=== PATIENT | male | born 1965 | race Caucasian/White ===

== ENCOUNTER 2016-11-14 20:30 | Emergency (ER) | payer MEDICAID ==
--- NOTE | 2016-11-14 20:59 | ED Physician Chart ---
Chief Complaint/HPI - Patient Information Date Seen:: 11/14/16 Time Seen:: 20:45 Chief Complaint:: palpitations and tremors History of Present Illness:: The last 9 days patient has been drinking a fifth of suellen or whiskey per day. His girlfriend came to his apartment today and poured out the remaining one third of the bottle of suellen. Patient complains of palpitations and tremors. He thinks he is going into alcohol withdrawal. Prior to the current 9 day alcohol drinking binge patient had 2 years of sobriety. He's had up to a nine- year period of sobriety Allergies:: Allergies Allergy/AdvReac Type Severity Reaction Status Date / Time No Known Allergies Allergy Verified 11/14/16 20:47 Vitals:: Vital Signs - 8 hr 11/14/16 20:30 Temp 100.0 F HR 120 RR 20 BP 142/88 O2 Sat % 94 Historian:: Patient Review:: Nurse's Note Reviewed Review of Systems - Review of Systems General/Constitutional: No fever, No chills Skin: No skin lesions Head: No headache Eyes: No loss of vision ENT: No earache Neck: No neck pain, No swelling Cardio Vascular: No chest pain, Palpitations Pulmonary: No SOB, No cough GI: No pain, No melena G/U: No dysuria, No frequency Musculoskeletal: No bone or joint pain Endocrine: No polyuria, No polydipsia Psychiatric: No prior psych history Hematopoietic: No bruising, No lymphadenopathy Allergic/Immuno: No urticaria Neurological: No syncope Past Medical History - Past Medical History Past Medical History: Other (alcoholism) Family History: HTN Social History: Smoker, Alcohol Surgical History: Hernia Psychiatricy History: None Family Medical History - Family Member Mother History Unknown: Yes Physical Exam - Physical Examination General/Constitutional: Well-developed, well-nourished, Alert Other Gen/Cons comments:: Mildly tremulous Head: Atraumatic Skin: Nl inspection ENMT: External ears, nose nl, Nasal exam nl Other ENMT comments:: Gum retraction noted Neck: No nuchal rigidity Respiratory: Nl effort/Exclusion Other Respiratory comments:: Minimum right-sided wheezing otherwise chest is clear Cardio Vascular: RRR GI: No tenderness/rebounding/guarding, No organomegaly : No CVA tenderness Extremities: No tenderness or effusion Neuro/Psych: Alert/oriented, No focal deficits Misc: Normal back Labs/Radiology/EKG Results - Lab Results Comments:: Laboratory Results - last 24 hr 11/14/16 11/14/16 11/14/16 21:15 21:15 21:15 WBC 10.5 RBC 5.74 H Hgb 16.7 Hct 51.5 H MCV 89.7 MCH 29.0 MCHC Differential 32.4 RDW 12.7 Plt Count 190 MPV 6.9 Neutrophils % 73.4 Lymphocytes % 17.8 L Monocytes % 8.4 Eosinophils % 0.2 Basophils % 0.2 Sodium 137 Potassium 4.1 Chloride 95 L Carbon Dioxide 26.3 Anion Gap 19.8 H BUN 19 Creatinine 1.0 Est GFR ( Amer) > 60.0 Est GFR (Non-Af Amer) > 60.0 BUN/Creatinine Ratio 19.0 Glucose 128 H Calcium 9.0 Magnesium 2.2 Ethyl Alcohol 285 H Assessment - Assessment General Assessment: at 2250 patient improved. Girlfriend who has had 18 years of sobriety and looks healthy and competent and works states she will control the Librium ED Septic Shock - . Is Septic Shock (SBP<90, OR Lactate>4 mmol\L) present?: No - <6hrs of presentation: Vital Signs: Vital Signs - 8 hr 11/14/16 20:30 Temp 100.0 F HR 120 RR 20 BP 142/88 O2 Sat % 94 Reassessment (Disposition) - Reassessment Reassessment Condition:: Improved - Diagnosis Diagnosis:: alcohol intoxication; alcohol withdrawal - Aftercare/Follow up Instructions Aftercare/Follow-Up Instructions:: Refer to Discharge Instructions Medication Prescribed:: Librium 50 mg #16 Sig 1 BID-TID PRN - Patient Disposition Discharge/Transfer:: Home Condition at Disposition:: Stable, Improved
[2016-11-14] MEDS ORDERED: Sodium Chloride 0.9% 2,000 ML IV ONE (21:13)
[2016-11-14 21:33] LABS: % BASOPHILS 0.2 % (0.0-2.0); % EOSINOPHILS 0.2 % (0.0-5.0); % LYMPHOCYTES 17.8 % (20.0-50.0); % MONOCYTES 8.4 % (2.0-10.0); % NEUTROPHILS 73.4 % (40.0-80.0); HEMATOCRIT 51.5 % (39.0-49.0); HEMOGLOBIN 16.7 gm/dL (13.2-17.3); MEAN CELL VOLUME 89.7 fl (80-99); MEAN CORPUSCULAR HGB CONC 32.4 pg (28.0-36.0); MEAN PLATELET VOLUME 6.9 fl; NEUTROPHILE ABSOLUTE 7.7 Th/cmm (1.8-8.0); PLATELET COUNT 190 Th/cmm (150-400); RED BLOOD COUNT 5.74 Mil/cmm (4.30-5.70); RED CELL DISTRIBUTION WIDTH 12.7 % (11.5-20.0); WHITE BLOOD COUNT 10.5 Th/cmm (4.8-10.8)
[2016-11-14 21:51] LABS: ANION GAP 19.8 (7.0-16.0); BUN - UREA NITROGEN 19 mg/dL (7-25); CARBON DIOXIDE 26.3 mEq/L (21.0-31.0); CHLORIDE 95 mEq/L (98-107); GLUCOSE 128 mg/dL (70-105); MAGNESIUM 2.2 mg/dL (1.9-2.7); POTASSIUM SERUM 4.1 mEq/L (3.5-5.1); SODIUM SERUM 137 mEq/L (136-145)
== END 2016-11-14 23:15 | disposition home or self-care (01) ==
LOC: ER 20:30
DX: F10.129 Alcohol abuse with intoxication, unspecified (principal); F17.200 Nicotine dependence, unspecified, uncomplicated
CPT/HCPCS: 36415-UA; 80048-TC; 80320-TC; 83735-TC; 85025-TC; J7030; Z7502; Z7610